=== PATIENT | female | born 1930 | race Two or more races ===

== ENCOUNTER 2016-09-17 15:05 | Inpatient (IN) | payer MEDICARE, OTHER ==
[~2016-09-17] VITALS: Ht 175.3 cm; Wt 82.3 kg
--- NOTE | 2016-09-17 15:24 | Emergency Room Report ---
History of Present Illness General Chief Complaint: Flu Like Symptoms Source: Patient Present Illness HPI Patient is an 85-year-old female presented after having increased generalized weakness. The patient had the cough for approximately 10 days. She had recently been released from the [facility]. Patient was having increased difficulty ambulation. She had not been vomiting or having diarrhea. She reported having subjective chills. She had a no complaints of focal weakness. She denied any recent trauma. Allergies: Coded Allergies: ATORVASTATIN (Verified Allergy, Mild, 09/18/10) Patient History Reviewed Nursing Documentation: PMH: Agreed, PSxH: Agreed Nursing Documentation-PMH Past Medical History Deferred: No Family Available Past Medical History: Deferred Review of Systems All Other Systems: negative except mentioned in HPI Physical Exam Vital Signs Date Time Temp Pulse Resp B/P Pulse Ox O2 Delivery O2 Flow Rate FiO2 09/17/16 14:51 98.1 117 20 126/60 100 Room Air Sp02 EP Interpretation: reviewed, normal General Appearance: normal inspection, well appearing, no apparent distress, alert, GCS 15 Head: atraumatic ENT: normal ENT inspection, hearing grossly normal, normal voice Neck: normal inspection, full range of motion, supple, no bony tend Respiratory: normal inspection, lungs clear, normal breath sounds, no respiratory distress, no retraction, no wheezing Cardiovascular #1: regular rate, rhythm, no edema Gastrointestinal: normal inspection, normal bowel sounds, non tender, soft, no guarding, no hernia Genitourinary: no CVA tenderness Musculoskeletal: normal inspection, back normal, normal range of motion Neurologic: normal inspection, alert, oriented x3, responsive, 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 Patient presented for generalized weakness. Differential diagnosis included was not limited to anemia, urinary tract infection, electrolyte abnormality, hypothyroidism, myocardial infarction, myasthenia gravis, dehydration, among others. Because of complexity of patient's case laboratory testing and imaging studies were ordered. Laboratory testing showed a mildly elevated white blood count as well as the elevated BUN and creatinine consistent with mild prerenal azotemia. Patient was given IV antibiotics do to possible pneumonia. Chest x-ray interpreted by me showed bilateral lung scarring versus infiltrate and normal cardiac size normal mediastinum.Dr. Bunn was contacted for inpatient management due to the patient's generalized weakness and inability to ambulate. Labs Test 09/17/16 15:46 White Blood Count 11.1 K/UL (4.8-10.8) Red Blood Count 3.48 M/UL (4.20-5.40) Hemoglobin 11.1 G/DL (12.0-16.0) Hematocrit 32.2 % (37.0-47.0) Mean Corpuscular Volume 93 FL (80-99) Mean Corpuscular Hemoglobin 31.8 PG (27.0-31.0) Mean Corpuscular Hemoglobin Concent 34.4 G/DL (32.0-36.0) Red Cell Distribution Width 13.1 % (11.6-14.8) Platelet Count 323 K/UL (150-450) Mean Platelet Volume 6.6 FL (6.5-10.1) Neutrophils (%) (Auto) 72.7 % (45.0-75.0) Lymphocytes (%) (Auto) 18.6 % (20.0-45.0) Monocytes (%) (Auto) 6.3 % (1.0-10.0) Eosinophils (%) (Auto) 1.7 % (0.0-3.0) Basophils (%) (Auto) 0.8 % (0.0-2.0) Sodium Level 136 mEQ/L (135-145) Potassium Level 4.8 mEQ/L (3.4-4.9) Chloride Level 96 mEQ/L (98-107) Carbon Dioxide Level 24 mEQ/L (20-30) Anion Gap 16 (5-15) Blood Urea Nitrogen 28 mg/dL (7-23) Creatinine 1.2 mg/dL (0.5-0.9) Estimat Glomerular Filtration Rate mL/min (>60) Glucose Level 124 mg/dL (74-106) Calcium Level 9.1 mg/dL (8.6-10.2) Total Bilirubin 0.3 mg/dL (0.0-1.2) Aspartate Amino Transf (AST/SGOT) 16 U/L (5-40) Alanine Aminotransferase (ALT/SGPT) 9 U/L (3-33) Alkaline Phosphatase 58 U/L (35-104) Total Creatine Kinase 36 U/L (26-140) Creatine Kinase MB < 1.5 ng/mL (< 3.8) Creatine Kinase MB Relative Index Troponin I < 0.30 ng/mL (<=0.30) Pro-B-Type Natriuretic Peptide 913 pg/mL (0-450) Total Protein 6.7 g/dL (6.6-8.7) Albumin 3.4 g/dL (3.5-5.2) Globulin 3.3 g/dL Albumin/Globulin Ratio 1.0 (1.0-2.7) EKG Diagnostic Results Rate: normal Rhythm: NSR - 85 ST Segments: no acute changes Rhythm Strip Diag. Results EP Interpretation: yes Rhythm: NSR, no PVC's, no ectopy Chest X-Ray Diagnostic Results EP Interpretation: Yes Findings: no effusion, no pneumothorax, no acute cardiopulmonary disease Number of Views: 1 Last Vital Signs Date Time Temp Pulse Resp B/P Pulse Ox O2 Delivery O2 Flow Rate FiO2 09/17/16 14:51 98.1 117 20 126/60 100 Room Air Status: unchanged Disposition: ADMITTED INPATIENT Condition: Serious DamonVega Sep 17, 2016 15:24
[2016-09-17 15:30] VITALS: BP 126/60
[2016-09-17 15:57] VITALS: BP 126/56
[2016-09-17 15:57] LABS: BASOPHILS % (AUTO) 0.8 % (0.0-2.0); EOSINOPHILS % (AUTO) 1.7 % (0.0-3.0); LYMPHOCYTES % (AUTO) 18.6 % (20.0-45.0); MEAN CORPUSCULAR HEMOGLOBIN 31.8 PG (27.0-31.0); MEAN CORPUSCULAR HGB CONC 34.4 G/DL (32.0-36.0); MEAN CORPUSCULAR VOLUME 93 FL (80-99); MEAN PLATELET VOLUME 6.6 FL (6.5-10.1); MONOCYTES % (AUTO) 6.3 % (1.0-10.0); NEUTROPHILS % (AUTO) 72.7 % (45.0-75.0); PLATELET COUNT 323 K/UL (150-450); RED BLOOD COUNT 3.48 M/UL (4.20-5.40); RED CELL DISTRIBUTION WIDTH 13.1 % (11.6-14.8); WHITE BLOOD COUNT 11.1 K/UL (4.8-10.8)
[2016-09-17] MEDS ORDERED: Azithromycin 500 MG in NS 250 ML IVPB ONE (16:15)
[2016-09-17] MEDS ORDERED: Azithromycin Inj IV ONE (16:19)
[2016-09-17 16:23] LABS: TROPONIN I < 0.30 ng/mL (<=0.30)
[2016-09-17 16:26] LABS: ALANINE AMINOTRANSFERASE 9 U/L (3-33); ANION GAP 16 (5-15); ASPARTATE AMINO TRANSFERASE 16 U/L (5-40); CALCIUM 9.1 mg/dL (8.6-10.2); CARBON DIOXIDE 24 mEQ/L (20-30); CHLORIDE 96 mEQ/L (98-107); CREATININE 1.2 mg/dL (0.5-0.9); HEMOLYSIS 51; POTASSIUM 4.8 mEQ/L (3.4-4.9); SODIUM 136 mEQ/L (135-145); TOTAL PROTEIN 6.7 g/dL (6.6-8.7)
[2016-09-17 16:36] LABS: CKMB < 1.5 ng/mL (< 3.8)
[2016-09-17] MEDS ORDERED: UNOBMED (16:52)
[2016-09-17 18:29] VITALS: BP 96/37
[2016-09-17] MEDS ORDERED: LORazepam Inj 2mg/ml 1ml IV PRN (18:30)
[2016-09-17] MEDS ORDERED: Zolpidem 5mg tab ORAL PRN (18:30)
[2016-09-17] MEDS ORDERED: Mylanta II UD 30ml ORAL PRN (18:30)
[2016-09-17] MEDS ORDERED: Miralax 17gm pkt ORAL PRN (18:30)
[2016-09-17] MEDS ORDERED: Morphine Sulfate 2mg/ml Inj IVP PRN (18:30)
[2016-09-17] MEDS: Heparin 5000 units/ml inj SUBQ SCH (21:47)
[2016-09-17 21:52] VITALS: BP 130/60
--- NOTE | 2016-09-17 22:45 | History and Physical ---
History of Present Illness General Date patient seen: Sep 17, 2016 Reason for Hospitalization: Flu Like Symptoms Present Illness HPI 85-year-old female without significant PMH, show was just recently discharged from a nursing facility, was brought in by paramedics with CC of increased generalized weakness. The patient had the cough for approximately 10 days. Patient was having increased difficulty ambulation. She reported having subjective chills. She blames the cold weather for her to get sick. Allergies: Coded Allergies: ATORVASTATIN (Verified Allergy, Mild, 09/18/10) Medication History Miscellaneous Medications Unable to Obtain Medications (Unable To Obtain Meds), (Reported) Patient History Healthcare decision maker Resuscitation status Full Code Advanced Directive on File Past Medical/Surgical History Past Medical/Surgical History: (1) No pertinent past medical history Review of Systems Constitutional: Reports: chills, fever Respiratory: Reports: cough Physical Exam General Appearance: WD/WN Lines, tubes and drains: peripheral, central line HEENT: normocephalic, atraumatic Neck: non-tender, normal alignment Respiratory/Chest: chest wall non-tender, lungs clear Cardiovascular/Chest: normal peripheral pulses, normal rate Genitourinary/Rectal: normal rectal exam Last 24 Hour Vital Signs Date Time Temp Pulse Resp B/P Pulse Ox O2 Delivery O2 Flow Rate FiO2 09/17/16 21:52 98.8 77 20 130/60 98 Room Air 09/17/16 20:00 73 09/17/16 18:36 98.1 75 20 96/37 100 Room Air 09/17/16 18:29 98.1 75 20 96/37 100 Room Air 09/17/16 15:57 84 20 126/56 100 Room Air 09/17/16 15:30 117 20 Room Air 09/17/16 15:30 98.1 117 20 126/60 100 Room Air 09/17/16 14:51 98.1 117 20 126/60 100 Room Air Laboratory Tests Test 09/17/16 15:46 White Blood Count 11.1 K/UL (4.8-10.8) H Red Blood Count 3.48 M/UL (4.20-5.40) L Hemoglobin 11.1 G/DL (12.0-16.0) L Hematocrit 32.2 % (37.0-47.0) L Mean Corpuscular Volume 93 FL (80-99) Mean Corpuscular Hemoglobin 31.8 PG (27.0-31.0) H Mean Corpuscular Hemoglobin Concent 34.4 G/DL (32.0-36.0) Red Cell Distribution Width 13.1 % (11.6-14.8) Platelet Count 323 K/UL (150-450) Mean Platelet Volume 6.6 FL (6.5-10.1) Neutrophils (%) (Auto) 72.7 % (45.0-75.0) Lymphocytes (%) (Auto) 18.6 % (20.0-45.0) L Monocytes (%) (Auto) 6.3 % (1.0-10.0) Eosinophils (%) (Auto) 1.7 % (0.0-3.0) Basophils (%) (Auto) 0.8 % (0.0-2.0) Sodium Level 136 mEQ/L (135-145) Potassium Level 4.8 mEQ/L (3.4-4.9) Chloride Level 96 mEQ/L (98-107) L Carbon Dioxide Level 24 mEQ/L (20-30) Anion Gap 16 (5-15) H Blood Urea Nitrogen 28 mg/dL (7-23) H Creatinine 1.2 mg/dL (0.5-0.9) H Estimat Glomerular Filtration Rate mL/min (>60) Glucose Level 124 mg/dL (74-106) H Calcium Level 9.1 mg/dL (8.6-10.2) Total Bilirubin 0.3 mg/dL (0.0-1.2) Aspartate Amino Transf (AST/SGOT) 16 U/L (5-40) Alanine Aminotransferase (ALT/SGPT) 9 U/L (3-33) Alkaline Phosphatase 58 U/L (35-104) Total Creatine Kinase 36 U/L (26-140) Creatine Kinase MB < 1.5 ng/mL (< 3.8) Creatine Kinase MB Relative Index Troponin I < 0.30 ng/mL (<=0.30) Pro-B-Type Natriuretic Peptide 913 pg/mL (0-450) H Total Protein 6.7 g/dL (6.6-8.7) Albumin 3.4 g/dL (3.5-5.2) L Globulin 3.3 g/dL Albumin/Globulin Ratio 1.0 (1.0-2.7) Height (Feet): 5 Height (Inches): 9.00 Weight (Pounds): 180 Medications Current Medications Medications (Trade) Dose Ordered Sig/Ken Route PRN Reason Start Time Stop Time Status Last Admin Dose Admin Acetaminophen (Tylenol) 650 mg Q4H PRN ORAL fever 09/17/16 18:30 10/17/16 18:29 Al Hydroxide/Mg Hydroxide (Mylanta II) 30 ml Q6H PRN ORAL dyspepsia 09/17/16 18:30 10/17/16 18:29 Dextrose STAT PRN IV Hypoglycemia 09/17/16 18:30 10/17/16 18:29 Heparin Sodium (Porcine) (Heparin 5000 units/ml) 5,000 units EVERY 12 HOURS SUBQ 09/17/16 21:00 10/17/16 20:59 09/17/16 21:47 Levofloxacin 100 ml @ 100 mls/hr ONCE IVPB 09/17/16 21:00 09/24/16 20:59 09/17/16 21:46 Levofloxacin (Levaquin) 50 ml @ 50 mls/hr Q24H IVPB 09/18/16 21:00 09/24/16 20:59 Lorazepam (Ativan 2mg/ml 1ml) 0.5 mg Q4H PRN IV For Anxiety 09/17/16 18:30 09/24/16 18:29 Morphine Sulfate (Morphine Sulfate) 1 mg Q4H PRN IVP For Pain 09/17/16 18:30 09/24/16 18:29 Ondansetron HCl (Zofran) 4 mg Q6H PRN IVP Nausea & Vomiting 09/17/16 18:30 10/17/16 18:29 Polyethylene Glycol (Miralax) 17 gm HSPRN PRN ORAL Constipation 09/17/16 18:30 10/17/16 18:29 Zolpidem Tartrate (Ambien) 5 mg HSPRN PRN ORAL Insomnia 09/17/16 18:30 10/17/16 18:29 Assessment/Plan Problem List: (1) Sepsis ICD Codes: A41.9 - Sepsis, unspecified organism SNOMED: 81932125 (2) Fever ICD Codes: R50.9 - Fever, unspecified SNOMED: 079804202 (3) Bronchitis ICD Codes: J40 - Bronchitis, not specified as acute or chronic SNOMED: 45503897 (4) Generalized weakness ICD Codes: R53.1 - Weakness SNOMED: 17559078 Assessment/Plan marquis cultures IV antibiotics check sputum respiratory treatment monitor BP pt/ot KELLEY MUELLER Sep 17, 2016 22:45
[2016-09-17 23:58] VITALS: BP 137/52
[2016-09-18] VITALS (7 sets, daily range): BP systolic 110–166; BP diastolic 55–64
[2016-09-18 01:28] LABS: APPEARANCE,URINE CLEAR; KETONES,URINE NEGATIVE (NEGATIVE); LEUKOCYTE ESTERASE ,URINE NEGATIVE (NEGATIVE); NITRITE,URINE NEGATIVE (NEGATIVE); PH,URINE 6 (4.5-8.0); PROTEIN,URINE NEGATIVE (NEGATIVE); UROBILINOGEN,URINE NORMAL MG/DL (0.0-1.0)
[2016-09-18 06:30] LABS: BASOPHILS % (AUTO) 0.9 % (0.0-2.0); EOSINOPHILS % (AUTO) 3.5 % (0.0-3.0); LYMPHOCYTES % (AUTO) 29.8 % (20.0-45.0); MEAN CORPUSCULAR HEMOGLOBIN 30.3 PG (27.0-31.0); MEAN CORPUSCULAR HGB CONC 32.2 G/DL (32.0-36.0); MEAN CORPUSCULAR VOLUME 94 FL (80-99); MEAN PLATELET VOLUME 6.2 FL (6.5-10.1); MONOCYTES % (AUTO) 7.1 % (1.0-10.0); NEUTROPHILS % (AUTO) 58.7 % (45.0-75.0); PLATELET COUNT 293 K/UL (150-450); RED BLOOD COUNT 3.13 M/UL (4.20-5.40); RED CELL DISTRIBUTION WIDTH 12.9 % (11.6-14.8); WHITE BLOOD COUNT 9.2 K/UL (4.8-10.8)
[2016-09-18 06:51] LABS: ALANINE AMINOTRANSFERASE 7 U/L (3-33); ALBUMIN/GLOBULIN RATIO 0.9 (1.0-2.7); ANION GAP 14 (5-15); ASPARTATE AMINO TRANSFERASE 10 U/L (5-40); CARBON DIOXIDE 27 mEQ/L (20-30); CHLORIDE 100 mEQ/L (98-107); CHOLESTEROL 155 mg/dL (< 200); CHOLESTEROL/HDL RATIO 2.5 (3.3-4.4); CREATININE 1.3 mg/dL (0.5-0.9); HEMOLYSIS 3; LDL CHOLESTEROL (CALC.) 74 mg/dL (60-99); POTASSIUM 4.3 mEQ/L (3.4-4.9); SODIUM 141 mEQ/L (135-145); TOTAL PROTEIN 6.3 g/dL (6.6-8.7)
[2016-09-18 07:01] LABS: HEMOGLOBIN A1C 4.9 % (< 6.0)
[2016-09-18] MEDS: Heparin 5000 units/ml inj SUBQ SCH ×2 (09:10→20:40)
--- NOTE | 2016-09-18 13:12 | Diagnostic Imaging Report ---
Indication: Chest Pain Comparison: None A single view chest radiograph was obtained. Findings: No definite infiltrate or pulmonary vascular congestion identified. The heart is enlarged. The aorta is mildly enlarged consistent with atherosclerotic vascular disease. The bones are osteopenic. Impression: No acute disease
--- NOTE | 2016-09-18 13:35 | Pulmonology Progress Note ---
Assessment/Plan Problems: (1) Sepsis (2) Fever (3) Bronchitis (4) Generalized weakness Assessment/Plan improving check cultures IV antibiotics check sputum respiratory treatment pt/ot may go to med/surg Subjective ROS Limited/Unobtainable: No Interval Events: doing better, wants to go home, still coughing Allergies: Coded Allergies: ATORVASTATIN (Verified Allergy, Mild, 09/18/10) Objective Last 24 Hour Vital Signs Date Time Temp Pulse Resp B/P Pulse Ox O2 Delivery O2 Flow Rate FiO2 09/18/16 11:30 97.9 67 18 136/61 95 Room Air 09/18/16 09:00 97.0 09/18/16 08:33 100.0 67 20 141/56 95 Room Air 09/18/16 04:00 82 09/18/16 04:00 97.8 58 19 132/55 98 Room Air 09/18/16 00:00 76 09/17/16 23:58 98.8 66 19 137/52 97 09/17/16 21:52 98.8 77 20 130/60 98 Room Air 09/17/16 20:00 73 09/17/16 18:36 98.1 75 20 96/37 100 Room Air 09/17/16 18:29 98.1 75 20 96/37 100 Room Air 09/17/16 15:57 84 20 126/56 100 Room Air 09/17/16 15:30 117 20 Room Air 09/17/16 15:30 98.1 117 20 126/60 100 Room Air 09/17/16 14:51 98.1 117 20 126/60 100 Room Air Intake and Output 09/17/16 09/18/16 19:00 07:00 Intake Total 300 ml 580 ml Balance 300 ml 580 ml Intake Oral 480 ml IV Total 300 ml 100 ml General Appearance: WD/WN HEENT: normocephalic Respiratory/Chest: chest wall non-tender Breasts: no masses Cardiovascular: normal peripheral pulses Abdomen: normal bowel sounds, soft, non tender Extremities: no cyanosis Neurologic/Psychiatric: backfiller II-XII grossly normal Lymphatic: no neck adenopathy Laboratory Tests 09/17/16 15:46: White Blood Count 11.1H, Red Blood Count 3.48L, Hemoglobin 11.1L, Hematocrit 32.2L, Mean Corpuscular Volume 93, Mean Corpuscular Hemoglobin 31.8H, Mean Corpuscular Hemoglobin Concent 34.4, Red Cell Distribution Width 13.1, Platelet Count 323, Mean Platelet Volume 6.6, Neutrophils (%) (Auto) 72.7, Lymphocytes (% ) (Auto) 18.6L, Monocytes (%) (Auto) 6.3, Eosinophils (%) (Auto) 1.7, Basophils (%) (Auto) 0.8, Sodium Level 136, Potassium Level 4.8, Chloride Level 96L, Carbon Dioxide Level 24, Anion Gap 16H, Blood Urea Nitrogen 28H, Creatinine 1.2H , Estimat Glomerular Filtration Rate , Glucose Level 124H, Calcium Level 9.1, Total Bilirubin 0.3, Aspartate Amino Transf (AST/SGOT) 16, Alanine Aminotransferase (ALT/SGPT) 9, Alkaline Phosphatase 58, Total Creatine Kinase 36 , Creatine Kinase MB < 1.5, Creatine Kinase MB Relative Index , Troponin I < 0.30, Pro-B-Type Natriuretic Peptide 913H, Total Protein 6.7, Albumin 3.4L, Globulin 3.3, Albumin/Globulin Ratio 1.0 09/18/16 00:45: Urine Color Pale yellow, Urine Appearance Clear, Urine pH 6, Urine Specific [place] 1.015, Urine Protein Negative, Urine Glucose (UA) Negative, Urine Ketones Negative, Urine Occult Blood Negative, Urine Nitrite Negative, Urine Bilirubin Negative, Urine Urobilinogen Normal, Urine Leukocyte Esterase Negative 09/18/16 05:15: White Blood Count 9.2, Red Blood Count 3.13L, Hemoglobin 9.5L, Hematocrit 29.4L , Mean Corpuscular Volume 94, Mean Corpuscular Hemoglobin 30.3, Mean Corpuscular Hemoglobin Concent 32.2, Red Cell Distribution Width 12.9, Platelet Count 293, Mean Platelet Volume 6.2L, Neutrophils (%) (Auto) 58.7, Lymphocytes ( %) (Auto) 29.8, Monocytes (%) (Auto) 7.1, Eosinophils (%) (Auto) 3.5H, Basophils (%) (Auto) 0.9, Sodium Level 141, Potassium Level 4.3, Chloride Level 100, Carbon Dioxide Level 27, Anion Gap 14, Blood Urea Nitrogen 24H, Creatinine 1.3H, Estimat Glomerular Filtration Rate , Glucose Level 117H, Calcium Level 9.0 , Total Bilirubin 0.3, Aspartate Amino Transf (AST/SGOT) 10, Alanine Aminotransferase (ALT/SGPT) 7, Alkaline Phosphatase 50, Total Protein 6.3L, Albumin 3.1L, Globulin 3.2, Albumin/Globulin Ratio 0.9L, Hemoglobin A1c 4.9, Triglycerides Level 88, Cholesterol Level 155, LDL Cholesterol 74, HDL Cholesterol 63H, Cholesterol/HDL Ratio 2.5L, Thyroid Stimulating Hormone (TSH) 1.140 Current Medications Medications (Trade) Dose Ordered Sig/Ken Route PRN Reason Start Time Stop Time Status Last Admin Dose Admin Acetaminophen (Tylenol) 650 mg Q4H PRN ORAL fever 09/17/16 18:30 10/17/16 18:29 Al Hydroxide/Mg Hydroxide (Mylanta II) 30 ml Q6H PRN ORAL dyspepsia 09/17/16 18:30 10/17/16 18:29 Dextrose STAT PRN IV Hypoglycemia 09/17/16 18:30 10/17/16 18:29 Heparin Sodium (Porcine) (Heparin 5000 units/ml) 5,000 units EVERY 12 HOURS SUBQ 09/17/16 21:00 10/17/16 20:59 09/18/16 09:10 Levofloxacin 100 ml @ 100 mls/hr ONCE IVPB 09/17/16 21:00 09/24/16 20:59 09/17/16 21:46 Levofloxacin (Levaquin) 50 ml @ 50 mls/hr Q24H IVPB 09/18/16 21:00 09/24/16 20:59 Lorazepam (Ativan 2mg/ml 1ml) 0.5 mg Q4H PRN IV For Anxiety 09/17/16 18:30 09/24/16 18:29 Morphine Sulfate (Morphine Sulfate) 1 mg Q4H PRN IVP For Pain 09/17/16 18:30 09/24/16 18:29 Ondansetron HCl (Zofran) 4 mg Q6H PRN IVP Nausea & Vomiting 09/17/16 18:30 10/17/16 18:29 Polyethylene Glycol (Miralax) 17 gm HSPRN PRN ORAL Constipation 09/17/16 18:30 10/17/16 18:29 Zolpidem Tartrate (Ambien) 5 mg HSPRN PRN ORAL Insomnia 09/17/16 18:30 10/17/16 18:29 KELLEY MUELLER 3, 2017 13:35
--- NOTE | 2016-09-18 15:01 | Neurology Progress Note ---
Interim History Interim History ROS Limited/Unobtainable: No Objective Physical Exam Last Vital Signs Date Time Temp Pulse Resp B/P Pulse Ox O2 Delivery O2 Flow Rate FiO2 09/18/16 11:30 97.9 67 18 136/61 95 Room Air Laboratory Tests Test 09/17/16 15:46 09/18/16 00:45 09/18/16 05:15 09/18/16 14:00 White Blood Count 11.1 K/UL (4.8-10.8) H 9.2 K/UL (4.8-10.8) Red Blood Count 3.48 M/UL (4.20-5.40) L 3.13 M/UL (4.20-5.40) L Hemoglobin 11.1 G/DL (12.0-16.0) L 9.5 G/DL (12.0-16.0) L Hematocrit 32.2 % (37.0-47.0) L 29.4 % (37.0-47.0) L Mean Corpuscular Volume 93 FL (80-99) 94 FL (80-99) Mean Corpuscular Hemoglobin 31.8 PG (27.0-31.0) H 30.3 PG (27.0-31.0) Mean Corpuscular Hemoglobin Concent 34.4 G/DL (32.0-36.0) 32.2 G/DL (32.0-36.0) Red Cell Distribution Width 13.1 % (11.6-14.8) 12.9 % (11.6-14.8) Platelet Count 323 K/UL (150-450) 293 K/UL (150-450) Mean Platelet Volume 6.6 FL (6.5-10.1) 6.2 FL (6.5-10.1) L Neutrophils (%) (Auto) 72.7 % (45.0-75.0) 58.7 % (45.0-75.0) Lymphocytes (%) (Auto) 18.6 % (20.0-45.0) L 29.8 % (20.0-45.0) Monocytes (%) (Auto) 6.3 % (1.0-10.0) 7.1 % (1.0-10.0) Eosinophils (%) (Auto) 1.7 % (0.0-3.0) 3.5 % (0.0-3.0) H Basophils (%) (Auto) 0.8 % (0.0-2.0) 0.9 % (0.0-2.0) Sodium Level 136 mEQ/L (135-145) 141 mEQ/L (135-145) Potassium Level 4.8 mEQ/L (3.4-4.9) 4.3 mEQ/L (3.4-4.9) Chloride Level 96 mEQ/L (98-107) L 100 mEQ/L (98-107) Carbon Dioxide Level 24 mEQ/L (20-30) 27 mEQ/L (20-30) Anion Gap 16 (5-15) H 14 (5-15) Blood Urea Nitrogen 28 mg/dL (7-23) H 24 mg/dL (7-23) H Creatinine 1.2 mg/dL (0.5-0.9) H 1.3 mg/dL (0.5-0.9) H Estimat Glomerular Filtration Rate mL/min (>60) mL/min (>60) Glucose Level 124 mg/dL (74-106) H 117 mg/dL (74-106) H Calcium Level 9.1 mg/dL (8.6-10.2) 9.0 mg/dL (8.6-10.2) Total Bilirubin 0.3 mg/dL (0.0-1.2) 0.3 mg/dL (0.0-1.2) Aspartate Amino Transf (AST/SGOT) 16 U/L (5-40) 10 U/L (5-40) Alanine Aminotransferase (ALT/SGPT) 9 U/L (3-33) 7 U/L (3-33) Alkaline Phosphatase 58 U/L (35-104) 50 U/L (35-104) Total Creatine Kinase 36 U/L (26-140) Creatine Kinase MB < 1.5 ng/mL (< 3.8) Creatine Kinase MB Relative Index Troponin I < 0.30 ng/mL (<=0.30) Pro-B-Type Natriuretic Peptide 913 pg/mL (0-450) H Total Protein 6.7 g/dL (6.6-8.7) 6.3 g/dL (6.6-8.7) L Albumin 3.4 g/dL (3.5-5.2) L 3.1 g/dL (3.5-5.2) L Globulin 3.3 g/dL 3.2 g/dL Albumin/Globulin Ratio 1.0 (1.0-2.7) 0.9 (1.0-2.7) L Urine Color Pale yellow Urine Appearance Clear Urine pH 6 (4.5-8.0) Urine Specific [place] 1.015 (1.005-1.035) Urine Protein Negative (NEGATIVE) Urine Glucose (UA) Negative (NEGATIVE) Urine Ketones Negative (NEGATIVE) Urine Occult Blood Negative (NEGATIVE) Urine Nitrite Negative (NEGATIVE) Urine Bilirubin Negative (NEGATIVE) Urine Urobilinogen Normal MG/DL (0.0-1.0) Urine Leukocyte Esterase Negative (NEGATIVE) Neutrophils % (Manual) Pending Lymphocytes % (Manual) Pending Platelet Estimate Pending Platelet Morphology Pending Hemoglobin A1c 4.9 % (< 6.0) Triglycerides Level 88 mg/dL (< 150) Cholesterol Level 155 mg/dL (< 200) LDL Cholesterol 74 mg/dL (60-99) HDL Cholesterol 63 mg/dL (> 60) H Cholesterol/HDL Ratio 2.5 (3.3-4.4) L Thyroid Stimulating Hormone (TSH) 1.140 uIU/mL (0.300-4.500) Erythrocyte Sedimentation Rate Pending Reticulocyte Count Pending Prothrombin Time Pending Prothromb Time International Ratio Pending Activated Partial Thromboplast Time Pending Iron Level Pending Unsaturated Iron Binding Pending Lactate Dehydrogenase Pending Carcinoembryonic Antigen Pending Vitamin B12 Level Pending Folate Pending Impression/Recommendations Problems: (1) 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
[2016-09-18 15:06] LABS: INR 1.1 (0.9-1.1); PROTHROMBIN TIME 10.7 SEC (9.30-11.50)
[2016-09-18] MEDS ORDERED: Aspirin EC 81mg tab ORAL SCH (16:00)
[2016-09-18 17:32] LABS: BAND NEUTROPHILS % (MANUAL) 0 % (0-8); BASOPHILS % (MANUAL) 0 % (0-2); EOSINOPHILS % (MANUAL) 2 % (0-3); LYMPHOCYTES % (MANUAL) 31 % (20-45); NEUTROPHILS % (MANUAL) 62 % (45-75); NUCLEATED RED BLOOD CELLS 1 /100 WBC; PLATELET ESTIMATE ADEQUATE; PLATELET MORPHOLOGY NORMAL; TOTAL CELLS COUNTED 100
[2016-09-18 17:34] LABS: PATH BLOOD SMEAR/OMC SENT TO PATHOLOGIST
--- NOTE | 2016-09-18 18:18 | Consultation ---
DATE OF CONSULTATION: 09/18/2016 NEUROLOGICAL CONSULTATION REQUESTING PHYSICIAN: Tiff Bunn M.D. HISTORY OF PRESENT ILLNESS: The patient is an 85-year-old female, seen in neurological consultation to evaluate the episodes of transient verbal abnormality as the patient has slurred speech, unable to pronounce properly words, condition lasted about one hour. She was brought to emergency room where she was complaining of chills, cold for the last 10 days, blaming cold weather. Following admission, the chest x-ray revealed no acute disease. Laboratory studies included CBC study with WBC 11.1, hemoglobin 11.1, hematocrit 32.2. Chemistry panel with BUN of 28 and creatinine 1.2. BNP of 913. Normal TSH. Unremarkable lipid panel. Normal troponin. Normal urinalysis. Following admission until present time, symptoms remained unchanged. There were no paroxysmal events. PAST MEDICAL HISTORY: The patient known to have acute stroke approximately three weeks ago, this was confirmed by MRI of the brain. The patient currently undergoing treatment at the rehabilitation facility. The patient has a history of retinal detachment, left eye with left eye blindness, history of hypertension, degenerative joint disease, low back pain. FAMILY HISTORY: Noncontributory. SOCIAL HISTORY: Currently in rehabilitation facility. No alcohol. No drug abuse. Nonsmoker. The patient is . frequently attends her. REVIEW OF SYMPTOMS: At this time, the patient is back to usual. Her main concern is difficulty ambulation which she developed since she had a stroke. No urine or bowel incontinence. No chest pain. No palpitations. No respiratory difficulties. PHYSICAL EXAMINATION: GENERAL: A well-developed, well-nourished female, not in acute distress. VITAL SIGNS: Now stable. Blood pressure 136/61, temperature 97.9. HEENT: Head normocephalic. There is no evidence of trauma. Eyes, ears, and throat are clear except left eye cloudy cornea with blindness. MUSCULOSKELETAL: Remarkable for arthritic changes both knees and ankles. Peripheral pulses 1+ symmetric. MENTAL STATUS: The patient is alert and oriented x3. Her speech is fluent. Language intact. No aphasia. No apraxia. Cognitive function normal. CRANIAL NERVE II: On the right eye, 2 mm responding to light and accommodation. Extraocular movements intact. CRANIAL NERVE V: Normal corneal responses. CRANIAL NERVE VII: No facial asymmetry. CRANIAL NERVE VIII: Slight decrease in hearing. CRANIAL NERVES IX THROUGH XII: Tongue is in midline. MOTOR EXAMINATION: Able to lift arms and legs against the gravity. Strength 5/5 in all extremities. Clumsiness in both lower extremities. Reduced proprioception both feet. Deep tendon reflexes depressed bilaterally. Plantar responses flexor. Gait not tested but reportedly quite unstable, ataxic using walker with assistance but usually maintained in a wheelchair. IMPRESSION: 1. Transient episode of aphasia most likely representing transient ischemic attack in a dominant hemisphere. 2. History of recent stroke with residual gait ataxia. 3. Hypertension. 4. Status post upper respiratory infection. 5. Renal insufficiency. RECOMMENDATION: 1. Repeat MRI of the brain without contrast. 2. Recheck carotid duplex study. 3. Aspirin 81 mg daily. 4. 2D echocardiogram. 5. Observe for paroxysmal events.. Thank you for allowing me to see this interesting patient in neurological consultation. Caleb Currie M.D. DR: Kwadwo JOB#: [id number] CC:
[2016-09-18] MEDS ORDERED: LORazepam Inj 2mg/ml 1ml IV PRN (18:30)
[2016-09-18] MEDS ORDERED: Mylanta II UD 30ml ORAL PRN (18:30)
[2016-09-18] MEDS ORDERED: Miralax 17gm pkt ORAL PRN (18:30)
[2016-09-18] MEDS ORDERED: Morphine Sulfate 2mg/ml Inj IVP PRN (18:30)
[2016-09-18 19:09] LABS: RETICULOCYTE COUNT 0.8 % (0.0-2.0)
[2016-09-18] MEDS: Zolpidem 5mg tab ORAL PRN (20:39)
[2016-09-18] MEDS ORDERED: Levofloxacin 250mg/D5W 50ml IVPB SCH (21:00)
[2016-09-19 04:00] VITALS: BP 126/75
[2016-09-19 06:19] LABS: EOSINOPHILS % (AUTO) 1.9 % (0.0-3.0); LYMPHOCYTES % (AUTO) 27.3 % (20.0-45.0); MEAN CORPUSCULAR HGB CONC 31.5 G/DL (32.0-36.0); MEAN CORPUSCULAR VOLUME 95 FL (80-99); MEAN PLATELET VOLUME 6.7 FL (6.5-10.1); MONOCYTES % (AUTO) 7.8 % (1.0-10.0); PLATELET COUNT 302 K/UL (150-450); RED BLOOD COUNT 3.22 M/UL (4.20-5.40); WHITE BLOOD COUNT 9.8 K/UL (4.8-10.8)
[2016-09-19 06:28] LABS: ALANINE AMINOTRANSFERASE 6 U/L (3-33); ALBUMIN/GLOBULIN RATIO 0.9 (1.0-2.7); ANION GAP 11 (5-15); ASPARTATE AMINO TRANSFERASE 11 U/L (5-40); CALCIUM 9.1 mg/dL (8.6-10.2); CARBON DIOXIDE 27 mEQ/L (20-30); CHLORIDE 102 mEQ/L (98-107); CREATININE 1.1 mg/dL (0.5-0.9); HEMOLYSIS 3; POTASSIUM 4.2 mEQ/L (3.4-4.9); SODIUM 140 mEQ/L (135-145); TOTAL PROTEIN 6.5 g/dL (6.6-8.7)
[2016-09-19] MEDS: Aspirin EC 81mg tab ORAL SCH (08:11)
[2016-09-19] MEDS: Heparin 5000 units/ml inj SUBQ SCH ×2 (08:13→21:00)
[2016-09-19 08:40] VITALS: BP 140/72
[2016-09-19] MEDS ORDERED: Haloperidol 1mg tab ORAL PRN (12:15)
--- NOTE | 2016-09-19 12:23 | Neurology Progress Note ---
Interim History Interim History ROS Limited/Unobtainable: No Complaints: feel ok Events: since last nite became paranoid, refusing pt/ot Objective Physical Exam Last Vital Signs Date Time Temp Pulse Resp B/P Pulse Ox O2 Delivery O2 Flow Rate FiO2 09/19/16 08:40 97.8 85 20 140/72 96 Room Air Laboratory Tests Test 09/18/16 14:00 09/19/16 04:35 09/19/16 11:00 Erythrocyte Sedimentation Rate 92 MM/HR (0-42) H Reticulocyte Count 0.8 % (0.0-2.0) Prothrombin Time 10.7 SEC (9.30-11.50) Prothromb Time International Ratio 1.1 (0.9-1.1) Activated Partial Thromboplast Time 26 SEC (23-33) Iron Level 68 ug/dL (37-145) Total Iron Binding Capacity 225 ug/dL (250-400) L Percent Iron Saturation 30 % (15-50) Unsaturated Iron Binding 157 ug/dL (112-346) Lactate Dehydrogenase 122 U/L (135-230) L Carcinoembryonic Antigen 2.8 ng/mL Vitamin B12 Level 394 pg/mL (211-946) White Blood Count 9.8 K/UL (4.8-10.8) Red Blood Count 3.22 M/UL (4.20-5.40) L Hemoglobin 9.7 G/DL (12.0-16.0) L Hematocrit 30.7 % (37.0-47.0) L Mean Corpuscular Volume 95 FL (80-99) Mean Corpuscular Hemoglobin 30.0 PG (27.0-31.0) Mean Corpuscular Hemoglobin Concent 31.5 G/DL (32.0-36.0) L Red Cell Distribution Width 13.0 % (11.6-14.8) Platelet Count 302 K/UL (150-450) Mean Platelet Volume 6.7 FL (6.5-10.1) Neutrophils (%) (Auto) 62.0 % (45.0-75.0) Lymphocytes (%) (Auto) 27.3 % (20.0-45.0) Monocytes (%) (Auto) 7.8 % (1.0-10.0) Eosinophils (%) (Auto) 1.9 % (0.0-3.0) Basophils (%) (Auto) 1.0 % (0.0-2.0) Sodium Level 140 mEQ/L (135-145) Potassium Level 4.2 mEQ/L (3.4-4.9) Chloride Level 102 mEQ/L (98-107) Carbon Dioxide Level 27 mEQ/L (20-30) Anion Gap 11 (5-15) Blood Urea Nitrogen 19 mg/dL (7-23) Creatinine 1.1 mg/dL (0.5-0.9) H Estimat Glomerular Filtration Rate mL/min (>60) Glucose Level 113 mg/dL (74-106) H Calcium Level 9.1 mg/dL (8.6-10.2) Total Bilirubin 0.3 mg/dL (0.0-1.2) Aspartate Amino Transf (AST/SGOT) 11 U/L (5-40) Alanine Aminotransferase (ALT/SGPT) 6 U/L (3-33) Alkaline Phosphatase 49 U/L (35-104) Total Protein 6.5 g/dL (6.6-8.7) L Albumin 3.2 g/dL (3.5-5.2) L Globulin 3.3 g/dL Albumin/Globulin Ratio 0.9 (1.0-2.7) L Stool Occult Blood Pending General: well developed, well nourished, no acute distress Head: normocophalic, atraumatic Neck: no rigidity Neurologic Exam Mental Status: awake, alert, oriented x4, other - they wanted to kill me Speech: normal speech, no dysarthia Language: normal language, no aphasia Cranial Nerve II: fundus normal, visual li, no papilledema Cranial Nerves III, IV, : PERRLA, EOMI, pupils Cranial Nerve V: normal facial sensations Cranial Nerve VII: normal facial expressions Cranial Nerve VIII: no nystagmus Cranial Nerve IX: gag response Cranial Nerve XI: trapezii function normal Cranial Nerve XII: no tongue atrophy/fasciculations Motor System: no involuntary movement, no muscle wasting, other - -5/5 BLE Sensory: normal pinprick, normal light touch Coordination: normal finger to nose bilaterally, other - clumsy BLE Deep Tendon Reflexes: 1+ ankle (L), 1+ ankle (R), 1+ bicep (L), 1+ bicep (R), 1 + brachioradialis (L), 1+ brachioradialis (R), 1+ knee (L), 1+ knee (R), 1+ tricep (L), 1+ tricep (R) Gait: other - very unstable Impression/Recommendations Problems: (1) TIA L MCA distribution (2) Influenza-like symptoms (3) delirium with paranoid ideation (4) recent occipital ischemic stroke with gait ataxia (5) Generalized weakness Status: unchanged Recommendations #[id number] MRI brain subacute L FERRYBOAT CAPTAIN stroke [id number] tid prn stable for d/c psych eval outpatient RICCO HAMLIN Sep 19, 2016 12:23
--- NOTE | 2016-09-19 15:18 | Cardiology Report ---
APPROVED REPORT EKG Measurement Heart [id number] Normal sinus rhythm Normal ECG
[2016-09-19 16:00] VITALS: BP 149/71
--- NOTE | 2016-09-19 18:03 | Pulmonology Progress Note ---
Assessment/Plan Problems: (1) Sepsis (2) Fever (3) Bronchitis (4) Generalized weakness Assessment/Plan MRI of brain done, results pending improving check cultures IV antibiotics check sputum respiratory treatment pt/ot dc planning in 1-2 days Subjective ROS Limited/Unobtainable: No HEENT: Repors: no symptoms Cardiovascular: Reports: no symptoms Allergies: Coded Allergies: ATORVASTATIN (Verified Allergy, Mild, 09/18/10) Objective Last 24 Hour Vital Signs Date Time Temp Pulse Resp B/P Pulse Ox O2 Delivery O2 Flow Rate FiO2 09/19/16 08:40 97.8 85 20 140/72 96 Room Air 09/19/16 04:00 97.7 74 20 126/75 98 Room Air 09/18/16 23:53 98.2 67 20 111/56 97 Room Air 09/18/16 22:55 110/60 09/18/16 20:00 98.2 102 22 166/60 95 Room Air Intake and Output 09/18/16 09/19/16 19:00 07:00 Intake Total 600 ml 410 ml Output Total 450 ml Balance 150 ml 410 ml Intake Oral 600 ml 360 ml IV Total 50 ml Output Urine Total 450 ml # Voids 4 4 General Appearance: WD/WN HEENT: normocephalic Respiratory/Chest: chest wall non-tender, lungs clear, normal breath sounds Cardiovascular: normal peripheral pulses, normal rate Abdomen: normal bowel sounds, soft, non tender Extremities: no cyanosis Neurologic/Psychiatric: oracle reports developer II-XII grossly normal Laboratory Tests 09/19/16 04:35: White Blood Count 9.8, Red Blood Count 3.22L, Hemoglobin 9.7L, Hematocrit 30.7L , Mean Corpuscular Volume 95, Mean Corpuscular Hemoglobin 30.0, Mean Corpuscular Hemoglobin Concent 31.5L, Red Cell Distribution Width 13.0, Platelet Count 302, Mean Platelet Volume 6.7, Neutrophils (%) (Auto) 62.0, Lymphocytes (%) (Auto) 27.3, Monocytes (%) (Auto) 7.8, Eosinophils (%) (Auto) 1.9, Basophils (%) (Auto) 1.0, Sodium Level 140, Potassium Level 4.2, Chloride Level 102, Carbon Dioxide Level 27, Anion Gap 11, Blood Urea Nitrogen 19, Creatinine 1.1H, Estimat Glomerular Filtration Rate , Glucose Level 113H, Calcium Level 9.1, Total Bilirubin 0.3, Aspartate Amino Transf (AST/SGOT) 11, Alanine Aminotransferase (ALT/SGPT) 6, Alkaline Phosphatase 49, Total Protein 6.5L, Albumin 3.2L, Globulin 3.3, Albumin/Globulin Ratio 0.9L 09/19/16 11:00: Stool Occult Blood Negative Current Medications Medications (Trade) Dose Ordered Sig/Ken Route PRN Reason Start Time Stop Time Status Last Admin Dose Admin Acetaminophen (Tylenol) 650 mg Q4H PRN ORAL fever 09/18/16 18:30 10/18/16 18:29 Al Hydroxide/Mg Hydroxide (Mylanta II) 30 ml Q6H PRN ORAL dyspepsia 09/18/16 18:30 10/18/16 18:29 Aspirin (Ecotrin) 81 mg DAILY ORAL 09/19/16 09:00 10/19/16 08:59 09/19/16 08:11 Clonidine HCl (Catapres) 0.1 mg Q4H PRN ORAL SBP>160 09/18/16 20:45 10/18/16 20:44 Dextrose (Dextrose 50%) STAT PRN IV Hypoglycemia 09/18/16 18:30 10/18/16 18:29 Haloperidol (Haldol) 1 mg Q6H PRN ORAL Agitation 09/19/16 12:15 10/19/16 12:14 Heparin Sodium (Porcine) (Heparin 5000 units/ml) 5,000 units EVERY 12 HOURS SUBQ 09/18/16 21:00 10/18/16 20:59 09/19/16 08:13 Levofloxacin (Levaquin) 250 mg QHS ORAL 09/19/16 21:00 09/24/16 20:59 Lorazepam (Ativan 2mg/ml 1ml) 0.5 mg Q4H PRN IV For Anxiety 09/18/16 18:30 09/25/16 18:29 Morphine Sulfate (Morphine Sulfate) 1 mg Q4H PRN IVP For Pain 09/18/16 18:30 09/25/16 18:29 09/18/16 18:41 Ondansetron HCl (Zofran) 4 mg Q6H PRN IVP Nausea & Vomiting 09/18/16 18:30 10/18/16 18:29 Polyethylene Glycol (Miralax) 17 gm HSPRN PRN ORAL Constipation 09/18/16 18:30 10/18/16 18:29 Zolpidem Tartrate (Ambien) 5 mg HSPRN PRN ORAL Insomnia 09/18/16 18:30 10/18/16 18:29 09/18/16 20:39 KELLEY MUELLER Sep 19, 2016 18:03
[2016-09-19 20:00] VITALS: BP 163/79
[2016-09-19] MEDS: Zolpidem 5mg tab ORAL PRN (22:48)
[2016-09-19 22:50] VITALS: BP 155/61
[2016-09-20] VITALS (7 sets, daily range): BP systolic 125–156; BP diastolic 54–68
--- NOTE | 2016-09-20 00:27 | Consultation ---
History of Present Illness General Chief Complaint: Flu Like Symptoms Present Illness HPI 85 yo female with recent stroke 3wks ago pw abnormal gait, slurred speech and speech abn. the pt also has been pw delusions and anxiety. refused pt/ot. she has persecutory delusions. Allergies: Coded Allergies: ATORVASTATIN (Verified Allergy, Mild, 09/18/10) Medication History Miscellaneous Medications Unable to Obtain Medications (Unable To Obtain Meds), (Reported) Patient History Limited by: age, medical condition History Provided By: Patient, Medical Record, PMD Healthcare decision maker Resuscitation status Full Code Advanced Directive on File Past Medical/Surgical History Past Medical/Surgical History: (1) ATN (acute tubular necrosis) (2) Influenza-like symptoms (3) No pertinent past medical history (4) Fever (5) Generalized weakness (6) Bronchitis (7) Sepsis (8) s/p recent ischemic strokes with residual gait ataxia. (9) TIA L MCA distribution (10) delirium with paranoid ideation (11) recent occipital ischemic stroke with gait ataxia Review of Systems Constitutional: Reports: malaise, weakness Psychiatric: Reports: emotional problems, hallucinations Physical Exam General Appearance: alert, moderate distress Neurologic: alert, oriented x 3, responsive, depressed affect Last 24 Hour Vital Signs Date Time Temp Pulse Resp B/P Pulse Ox O2 Delivery O2 Flow Rate FiO2 09/19/16 22:50 74 155/61 09/19/16 20:00 97.9 68 17 163/79 97 Room Air 09/19/16 16:00 98.1 60 18 149/71 98 Room Air 09/19/16 08:40 97.8 85 20 140/72 96 Room Air 09/19/16 04:00 97.7 74 20 126/75 98 Room Air Intake and Output 09/19/16 09/20/16 18:59 06:59 Intake Total 480 ml 280 ml Balance 480 ml 280 ml Intake Oral 480 ml 280 ml # Voids 2 2 Laboratory Tests Test 09/19/16 04:35 09/19/16 11:00 White Blood Count 9.8 K/UL (4.8-10.8) Red Blood Count 3.22 M/UL (4.20-5.40) L Hemoglobin 9.7 G/DL (12.0-16.0) L Hematocrit 30.7 % (37.0-47.0) L Mean Corpuscular Volume 95 FL (80-99) Mean Corpuscular Hemoglobin 30.0 PG (27.0-31.0) Mean Corpuscular Hemoglobin Concent 31.5 G/DL (32.0-36.0) L Red Cell Distribution Width 13.0 % (11.6-14.8) Platelet Count 302 K/UL (150-450) Mean Platelet Volume 6.7 FL (6.5-10.1) Neutrophils (%) (Auto) 62.0 % (45.0-75.0) Lymphocytes (%) (Auto) 27.3 % (20.0-45.0) Monocytes (%) (Auto) 7.8 % (1.0-10.0) Eosinophils (%) (Auto) 1.9 % (0.0-3.0) Basophils (%) (Auto) 1.0 % (0.0-2.0) Sodium Level 140 mEQ/L (135-145) Potassium Level 4.2 mEQ/L (3.4-4.9) Chloride Level 102 mEQ/L (98-107) Carbon Dioxide Level 27 mEQ/L (20-30) Anion Gap 11 (5-15) Blood Urea Nitrogen 19 mg/dL (7-23) Creatinine 1.1 mg/dL (0.5-0.9) H Estimat Glomerular Filtration Rate mL/min (>60) Glucose Level 113 mg/dL (74-106) H Calcium Level 9.1 mg/dL (8.6-10.2) Total Bilirubin 0.3 mg/dL (0.0-1.2) Aspartate Amino Transf (AST/SGOT) 11 U/L (5-40) Alanine Aminotransferase (ALT/SGPT) 6 U/L (3-33) Alkaline Phosphatase 49 U/L (35-104) Total Protein 6.5 g/dL (6.6-8.7) L Albumin 3.2 g/dL (3.5-5.2) L Globulin 3.3 g/dL Albumin/Globulin Ratio 0.9 (1.0-2.7) L Stool Occult Blood Negative (NEGATIVE) Height (Feet): 5 Height (Inches): 9.00 Weight (Pounds): 186 Medications Current Medications Medications (Trade) Dose Ordered Sig/Ken Route PRN Reason Start Time Stop Time Status Last Admin Dose Admin Acetaminophen (Tylenol) 650 mg Q4H PRN ORAL fever 09/18/16 18:30 10/18/16 18:29 Al Hydroxide/Mg Hydroxide (Mylanta II) 30 ml Q6H PRN ORAL dyspepsia 09/18/16 18:30 10/18/16 18:29 Aspirin (Ecotrin) 81 mg DAILY ORAL 09/19/16 09:00 10/19/16 08:59 09/19/16 08:11 Clonidine HCl (Catapres) 0.1 mg Q4H PRN ORAL SBP>160 09/18/16 20:45 10/18/16 20:44 Dextrose (Dextrose 50%) STAT PRN IV Hypoglycemia 09/18/16 18:30 10/18/16 18:29 Haloperidol (Haldol) 1 mg Q6H PRN ORAL Agitation 09/19/16 12:15 10/19/16 12:14 Heparin Sodium (Porcine) (Heparin 5000 units/ml) 5,000 units EVERY 12 HOURS SUBQ 09/18/16 21:00 10/18/16 20:59 09/19/16 08:13 Levofloxacin (Levaquin) 250 mg QHS ORAL 09/19/16 21:00 09/24/16 20:59 Lorazepam (Ativan 2mg/ml 1ml) 0.5 mg Q4H PRN IV For Anxiety 09/18/16 18:30 09/25/16 18:29 Morphine Sulfate (Morphine Sulfate) 1 mg Q4H PRN IVP For Pain 09/18/16 18:30 09/25/16 18:29 09/18/16 18:41 Ondansetron HCl (Zofran) 4 mg Q6H PRN IVP Nausea & Vomiting 09/18/16 18:30 10/18/16 18:29 Polyethylene Glycol (Miralax) 17 gm HSPRN PRN ORAL Constipation 09/18/16 18:30 10/18/16 18:29 Zolpidem Tartrate (Ambien) 5 mg HSPRN PRN ORAL Insomnia 09/18/16 18:30 10/18/16 18:29 09/19/16 22:48 Assessment/Plan Status: stable Assessment/Plan 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 Sep 20, 2016 00:27
[2016-09-20] MEDS: Aspirin EC 81mg tab ORAL SCH (08:12)
[2016-09-20] MEDS: OLANZapine 2.5mg tab ORAL SCH ×2 (08:12→17:45)
[2016-09-20] MEDS: Heparin 5000 units/ml inj SUBQ SCH ×2 (08:13→20:14)
[2016-09-20] MEDS ORDERED: OLANZAPINE2.5 MG ORAL (18:21)
[2016-09-20] MEDS ORDERED: ASPIRIN EC81 MG ORAL (18:21)
--- NOTE | 2016-09-20 18:31 | Pulmonology Progress Note ---
Assessment/Plan Problems: (1) Sepsis (2) Fever (3) Bronchitis (4) Generalized weakness Assessment/Plan MRI of brain done, showing subacute cva improving refused pt today wants to go home refused skilled facility psych consult appreciated dc planning in am Subjective ROS Limited/Unobtainable: No Interval Events: episodes of confusion Allergies: Coded Allergies: ATORVASTATIN (Verified Allergy, Mild, 09/18/10) Objective Last 24 Hour Vital Signs Date Time Temp Pulse Resp B/P Pulse Ox O2 Delivery O2 Flow Rate FiO2 09/20/16 16:05 98.6 88 22 156/67 97 Room Air 09/20/16 12:01 97.9 58 20 139/66 97 Room Air 09/20/16 08:34 98.1 69 20 144/64 95 Room Air 09/20/16 04:00 97.9 64 18 152/68 100 Room Air 09/20/16 00:00 97.5 69 18 156/65 96 Room Air 09/19/16 22:50 74 155/61 09/19/16 20:00 97.9 68 17 163/79 97 Room Air Intake and Output 09/19/16 09/20/16 19:00 07:00 Intake Total 480 ml 520 ml Balance 480 ml 520 ml Intake Oral 480 ml 520 ml # Voids 2 4 # Bowel Movements 1 General Appearance: WD/WN HEENT: normocephalic, atraumatic Respiratory/Chest: chest wall non-tender, lungs clear Cardiovascular: normal peripheral pulses, normal rate Abdomen: normal bowel sounds, soft, non tender Extremities: no clubbing Neurologic/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: 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 II-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 grossly normal Lymphatic: no neck adenopathy Current Medications Medications (Trade) Dose Ordered Sig/Ken Route PRN Reason Start Time Stop Time Status Last Admin Dose Admin Acetaminophen (Tylenol) 650 mg Q4H PRN ORAL fever 09/18/16 18:30 10/18/16 18:29 Al Hydroxide/Mg Hydroxide (Mylanta II) 30 ml Q6H PRN ORAL dyspepsia 09/18/16 18:30 10/18/16 18:29 Aspirin (Ecotrin) 81 mg DAILY ORAL 09/19/16 09:00 10/19/16 08:59 09/20/16 08:12 Clonidine HCl (Catapres) 0.1 mg Q4H PRN ORAL SBP>160 09/18/16 20:45 10/18/16 20:44 Dextrose (Dextrose 50%) STAT PRN IV Hypoglycemia 09/18/16 18:30 10/18/16 18:29 Heparin Sodium (Porcine) (Heparin 5000 units/ml) 5,000 units EVERY 12 HOURS SUBQ 09/18/16 21:00 10/18/16 20:59 09/20/16 08:13 Levofloxacin (Levaquin) 250 mg QHS ORAL 09/19/16 21:00 09/24/16 20:59 Lorazepam (Ativan 2mg/ml 1ml) 0.5 mg Q4H PRN IV For Anxiety 09/18/16 18:30 09/25/16 18:29 Morphine Sulfate (Morphine Sulfate) 1 mg Q4H PRN IVP For Pain 09/18/16 18:30 09/25/16 18:29 09/18/16 18:41 Olanzapine (ZyPREXA) 2.5 mg BID ORAL 09/20/16 09:00 10/20/16 08:59 09/20/16 17:45 Ondansetron HCl (Zofran) 4 mg Q6H PRN IVP Nausea & Vomiting 09/18/16 18:30 10/18/16 18:29 Polyethylene Glycol (Miralax) 17 gm HSPRN PRN ORAL Constipation 09/18/16 18:30 10/18/16 18:29 KELLEY MUELLER Sep 20, 2016 18:31
[2016-09-21 04:00] VITALS: BP 130/56
[2016-09-21 08:00] VITALS: BP 156/52
[2016-09-21] MEDS: OLANZapine 2.5mg tab ORAL SCH ×2 (08:21→17:45)
[2016-09-21] MEDS: Aspirin EC 81mg tab ORAL SCH (08:29)
[2016-09-21] MEDS: Heparin 5000 units/ml inj SUBQ SCH (08:29)
--- NOTE | 2016-09-21 09:11 | Pulmonology Progress Note ---
Assessment/Plan Assessment/Plan ASSESSMENT TIA L MCA distribution hx of recent occipital stroke with gait ataxia ATN likely 2 to dehydration - improving delirium with paranoid ideation bronchitis generalized weakness PLAN OF CARE MS floor O2 HHN prn on RA sat stable CXR no acute disease neuro follows MRI brain with subacute L MCA distribution , hx of recurrent old occipital stroke PT/OT fall precautions psych eval appreciated started on Zyprexa, and off Haldol HH at baseline, stool OB negative, iron panel stable, fup with HH at [facility] ATN likely 2 to dehydration, resolved, creat down to 1.1 assure adequate hydration at [facility] gait very unstable, requires extensive PT/OT and rehab program dc today to [facility] [place] care per nursing - discussed with , agrees to placement case discussed and evaluated by supervising physician Subjective Allergies: Coded Allergies: ATORVASTATIN (Verified Allergy, Mild, 09/18/10) Subjective awake, alert, confused no fever, no leucocytosis creat down to 1.1 Objective Last 24 Hour Vital Signs Date Time Temp Pulse Resp B/P Pulse Ox O2 Delivery O2 Flow Rate FiO2 09/21/16 04:00 98.2 81 18 130/56 94 Room Air 09/20/16 23:52 98.2 70 18 125/54 95 Room Air 09/20/16 20:00 98.2 71 23 136/57 97 Room Air 09/20/16 16:05 98.6 88 22 156/67 97 Room Air 09/20/16 12:01 97.9 58 20 139/66 97 Room Air Intake and Output 09/20/16 09/21/16 18:59 06:59 Intake Total 360 ml 840 ml Balance 360 ml 840 ml Intake Oral 360 ml 840 ml # Voids 3 3 General Appearance: no acute distress, other - awake, alert, confused Nigerian speaking female in NAD HEENT: normocephalic, atraumatic, anicteric, mucous membranes moist Respiratory/Chest: lungs clear, no respiratory distress, no accessory muscle use Cardiovascular: normal peripheral pulses, normal rate, regular rhythm, no JVD Abdomen: normal bowel sounds, soft, non tender Genitourinary: normal external genitalia Extremities: no edema, pedal pulses normal Neurologic/Psychiatric: abnormal gait, alert, responsive Musculoskeletal: atrophy - BLE Current Medications Medications (Trade) Dose Ordered Sig/Ken Route PRN Reason Start Time Stop Time Status Last Admin Dose Admin Acetaminophen (Tylenol) 650 mg Q4H PRN ORAL fever 09/18/16 18:30 10/18/16 18:29 Al Hydroxide/Mg Hydroxide (Mylanta II) 30 ml Q6H PRN ORAL dyspepsia 09/18/16 18:30 10/18/16 18:29 Aspirin (Ecotrin) 81 mg DAILY ORAL 09/19/16 09:00 10/19/16 08:59 09/20/16 08:12 Clonidine HCl (Catapres) 0.1 mg Q4H PRN ORAL SBP>160 09/18/16 20:45 10/18/16 20:44 Dextrose (Dextrose 50%) STAT PRN IV Hypoglycemia 09/18/16 18:30 10/18/16 18:29 Heparin Sodium (Porcine) (Heparin 5000 units/ml) 5,000 units EVERY 12 HOURS SUBQ 09/18/16 21:00 10/18/16 20:59 09/20/16 20:14 Levofloxacin (Levaquin) 250 mg QHS ORAL 09/19/16 21:00 09/24/16 20:59 09/20/16 20:13 Lorazepam (Ativan 2mg/ml 1ml) 0.5 mg Q4H PRN IV For Anxiety 09/18/16 18:30 09/25/16 18:29 Morphine Sulfate (Morphine Sulfate) 1 mg Q4H PRN IVP For Pain 09/18/16 18:30 09/25/16 18:29 09/18/16 18:41 Olanzapine (ZyPREXA) 2.5 mg BID ORAL 09/20/16 09:00 10/20/16 08:59 09/21/16 08:21 Ondansetron HCl (Zofran) 4 mg Q6H PRN IVP Nausea & Vomiting 09/18/16 18:30 10/18/16 18:29 Polyethylene Glycol (Miralax) 17 gm HSPRN PRN ORAL Constipation 09/18/16 18:30 10/18/16 18:29 Sima Valdez NP (Vanchtein) Sep 21, 2016 09:11
--- NOTE | 2016-09-21 11:00 | Discharge Instructions ---
Discharge Instructions Discharge Instructions Follow up with: MD at the faciltiy Call MD/Return to Hospital if: cehst pain, SOB, new weakness Services at Discharge: physical therapy, occupational therapy Diet: cardiac 2 GM Na, low fat Activity: as tolerated - fall precautions For Congestive Heart Failure Reminder Report to your physician any weight gain of 5 pounds or more in one week. José Miguel (Julianne,Sima LAGOS Sep 21, 2016 11:00
[2016-09-21 12:00] VITALS: BP 158/77
[2016-09-21 16:00] VITALS: BP 137/72
[2016-09-21] MEDS ORDERED: NS 275ml ONE (18:29)
--- NOTE | 2016-09-23 10:32 | Diagnostic Imaging Report ---
Indication: DYSPNEA Technique: One view of the chest Comparison: September 17, 2016 Findings: Inspiration is suboptimal. Lungs and pleural spaces are clear. Heart size is upper limits normal. Aorta is tortuous. No significant change Impression: No acute process
--- NOTE | 2016-09-23 10:32 | Diagnostic Imaging Report ---
Indication: Altered metal status, slurred speech, brain ataxia Technique: sagittal T1 fast spin echo, axial T1 FLAIR PROPELLER, axial T2 FLAIR PROPELLER, axial T2 FS PROPELLER, axial T2* GRE, axial diffusion weighted images. ADC and exponential ADC maps generated Comparison: None Findings: . Tiny focus of diffusion restriction is seen in the left parieto-occipital junction. No associated T2 abnormality. No other foci of restricted diffusion are demonstrated.. No acute hemorrhage or edema. No mass effect nor midline shift. There is age-related enlargement of the ventricles and extra-axial CSF spaces. Old lacunar infarcts and/or prominent perivascular spaces are seen in the basal ganglia bilaterally. There is chronic periventricular deep white matter ischemic change. There is evidence of prior bilateral cataract surgery. There is right ethmoid sinus disease.. Visualized orbits and sinuses are unremarkable. Impression: Tiny acute versus subacute infarct in the left occipital lobe Chronic and age-related changes, as described above Negative for acute intracranial bleed or mass effect Critical value findings discussed by phone with Dr. Toth at the time of interpretation
--- NOTE | 2016-09-24 07:56 | Discharge Summary ---
Discharge Summary Hospital Course Date of Admission Sep 17, 2016 at 17:12 Date of Discharge Sep 21, 2016 at 18:30 Admitting Diagnosis generalized weakness, chf HPI Maria Del Carmen Feldman is a 85 year old female who was admitted on Sep 17, 2016 at 17 :12 for GENERALIZED WEAKNESS,Congestive heart failure Hospital Course dc summary dictated # [id number] Discharge Condition Upon Discharge: improving Discharge Disposition Patient was discharged to Home with Home Health(06) Discharge Diagnoses: Discharge Instructions Discharge Instructions Follow up with: MD at the faciltiy Call MD/Return to Hospital if: cehst pain, SOB, new weakness Services Upon Discharge: physical therapy, occupational therapy Activity: as tolerated - fall precautions José Miguel (Sima Whitaker NP Sep 24, 2016 07:56
--- NOTE | 2016-09-24 10:18 | Discharge Summary 2 SIG ---
DATE OF ADMISSION: 09/17/2016 DATE OF DISCHARGE: 09/21/2016 CONDITION: Stable. REASON FOR HOSPITALIZATION: 85 years old female was brought by ambulance with increased generalized weakness, cough and difficulty with ambulation. She was recently discharged from the care home facility. She appeared to have a flu-like symptoms along with generalized weakness. ADMITTING DIAGNOSIS: possible sepsis fever bronchitis generalized weakness HOSPITAL COURSE: MRI of the brain revealed subacute left middle cerebral artery distribution stroke. The patient also has a history of recurrent old occipital strokes. Neurology, Dr. Currie was involved in the care of this patient. Patient on ASA, continued, Lipid panel stable. Fall precautions were maintained. The patient was working with physical and occupational therapy. Due to the altered level of consciousness, Psychiatry consult was requested. The patient started on Zyprexa. Psychiatrist, Dr. Orantes recommended to keep the patient off Haldol. Supplemental oxygen and pulmonary toilet were provided. Chest x-ray revealed no acute cardiopulmonary disease. On room air oxygen saturation was stable. Empiric antibiotic provided, s/p treatment. Antitussive provided as needed . No evidence of sepsis. Fever resolved. The patient initially demonstrated evidence of acute tubular necrosis, which likely was secondary to dehydration. After hydration with IV fluids, creatinine down to 1.1. Encouraged po fluids. Hemoglobin and hematocrit were stable. Stool for OB was negative. Iron panel stable. Gait still unstable. The patient requires extensive physical occupational therapy at home with home health. The patient's agreed with the plan: discharge home with home health for PT/OT. . DISCHARGE DIAGNOSES: Includes, 1. Transient ischemic attack, left MCA distribution. 2. History of recent occipital stroke with gait ataxia. 3. Acute tubular necrosis likely secondary to dehydration, improving. 4. Delirium with the paranoid ideation, likely secondary to underlying disease process. 5. Bronchitis. 6. Anemia of chrnci disease. 7. Generalized weakness likely 2 to underlying disease. DISCHARGE MEDICATIONS: See medication reconciliation list. DISCHARGE INSTRUCTIONS: The patient is discharged home with the home health. FOLLOWUP: To follow up with PT/OT. Followup with primary medical doctor. Mirali Zarrabi, M.D. I have been assigned to dictate discharge summary on this account and I was not involved in the patient's management. Sima Valdez (Vanchtein) NUmaPUma DR: ANDREW JOB#: [id number] CC: SHIVANI
--- NOTE | 2016-09-25 22:59 | Diagnostic Imaging Report ---
APPROVED REPORT CPT Code: 66415 Vascular Symptoms CVA/TIA: Comments: AMS Doppler Spectral Velocity Analysis RightLeft RIGHT SIDE: CCA - Imaging reveals no significant plaque in the common carotid artery. 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 VERTEBRAL - The vertebral artery is patent, without evidence of stenosis or steal. LEFT SIDE: CCA - Imaging reveals no significant plaque in the common carotid artery. ICA The Doppler signal indicates the degree of stenosis is mild (30%) in the internal carotid artery, and mild (50%) in the external carotid artery. VERTEBRAL - The vertebral artery is patent, without evidence of stenosis or steal.
== END 2016-09-21 18:30 | disposition home health service (06) | DRG 69 ==
LOC: EDBD 15:05 → EMR 17:09 → 2E 17:12 → EDBEDREQ 17:51 → 2E 20:01 → 4W 09-18 18:10
DX: G45.9 Transient cerebral ischemic attack, unspecified (principal); N17.0 Acute kidney failure with tubular necrosis; R47.01 Aphasia; J40 Bronchitis, not specified as acute or chronic; I69.993 Ataxia following unspecified cerebrovascular disease; I10 Essential (primary) hypertension; R41.0 Disorientation, unspecified; E86.0 Dehydration; D63.8 Anemia in other chronic diseases classified elsewhere
CPT/HCPCS: 36415; 70551; 71010; 80053; 80061; 81003; 82270; 82378; 82550; 82553; 82607; 82746; 83036; 83540; 83550; 83615; 83880; 84443; 84484; 85007; 85025; 85044; 85060; 85610; 85651; 85730; 93005; 93880